=== PATIENT | female | born 1950 | race Caucasian/White ===

== ENCOUNTER → 2023-09-19 12:00 | Outpatient (REF) | payer OTHER, SELFPAY ==
--- NOTE | 2023-09-21 08:30 | PN.DIAED16 ---
This is to notify you that your patient with diabetes, ROSALINA SANCHEZ ( 1950), has attended the entire series of Diabetes Self-Management Education Classes.
Class 1 (120 minutes): Diabetes Overview - monitoring, stress/psychosocial adjustment, support, goal setting
Class 2 (120 minutes): Meal Planning - serving sizes, menu plans
Class 3 (120 minutes): Introduction to Carbohydrate Counting, Analyzing Food Labels
Class 4 (120 minutes): Medication, Exercise and Activity
Class 5 (120 minutes): Sick Day Management, Strategies to Reduce Complications, Problem Solving, Resources
The following behavioral goals were identified:
Exercise 15 mins-3x/week
Make better food choices
Reduce portion sizes
Monitor more often
A follow-up call will be made within three to six months to evaluate attainment of these goals and to check post-program Hemoglobin A1c and overall progress. All class participants are encouraged to contact me if I can be any further assistance in
learning how to manage their diabetes.
Sincerely,
--- NOTE | 2023-09-27 08:53 | PN.DIAED04 ---
Education Record
- Education Record
Class Attended: Class 5
DSME Class Series Code: [id number]
Instructor: Registered Nurse (Manda Linton, RN, BSN, [facility] [place])
Class Curriculum:
Outpatient Diabetes Education Program:
Class 5 (120 minutes)
Prevent, detect, and treat acute complications
Prevent, detect, and treat chronic complications through risk reduction
Develop personal strategies to address psychosocial issues and concerns
Development of diabetes self-management support plan
Letter to physician with DSMS plan attached sent
Class Length (mins): 120
Post-Program Knowledge: Demonstrates competency
Post-Test Score (%): 83
Post-Program Assessment
- Post-Program Assessment
Actual Weight: 173 lb
Blood pressure: 140/71
Post-Program Depression Survey Score: 0
Reviewing Previous Goals?: Yes
Pre-Program Depression Survey Score: 5
- Goals 1 Evaluation
Goals To Be Evaluated: Exercise 15 mins-3x/week
- Goals 2 Evaluation
Goals To Be Evaluated: Make better food choices. Reduce portion sizes
- Goals 3 Evaluation
Goals To Be Evaluated: Monitor more often
== END ==
LOC: DES 12:00
PROVIDERS: ATTENDING PHYSICIAN Family Medicine
DX: E11.9 Type 2 diabetes mellitus without complications (principal)
CPT/HCPCS: 99078

== ENCOUNTER → 2024-06-12 10:52 | Outpatient (REF) | payer OTHER, SELFPAY | LOC: WDC 10:52 | PROVIDERS: ATTENDING PHYSICIAN Family Medicine | DX: Z12.31 Encounter for screening mammogram for malignant neoplasm of breast (principal) | CPT/HCPCS: 77063; 77067 ==

== ENCOUNTER → 2025-07-02 09:41 | Outpatient (REF) | payer OTHER, SELFPAY | LOC: RAD 09:41 | DX: M25.432 Effusion, left wrist (principal) | CPT/HCPCS: 73110 ==

== ENCOUNTER 2025-07-24 23:06 | Observation (INO) | payer OTHER, SELFPAY ==
[2025-07-24 15:25] VITALS: BP 128/86
[2025-07-24 15:52] LABS: Hematocrit 35.7 % (37.0-47.0); Hemoglobin 11.8 g/dL (12.0-16.0); Mean Corp Hgb Conc. 33.1 g/dL (33.0-37.0); Mean Corpuscular Volume 91.5 fL (81.0-99.0); Nucleated Red Blood Cells % 0 %; Platelet Count 221 10^3/uL (130-400); Red Cell Dist. Width 13.9 % (11.5-14.5)
[2025-07-24 16:04] LABS: ALT (SGPT) 17 U/L (0-35); AST (SGOT) 21 U/L (14-36); Albumin 4.6 g/dl (3.5-5.0); Alkaline Phosphatase 104 U/L (38-126); Blood Urea Nitrogen 27 mg/dl (7-17); Calcium 10.3 mg/dl (8.4-10.2); Carbon Dioxide 26 mmol/L (22-30); Chloride 102 mmol/L (98-107); Glucose 169 mg/dl (70-99); Potassium 4.3 mmol/L (3.5-5.1); Sodium 137 mmol/L (135-145); Total Protein 7.3 g/dl (6.3-8.2); eGFR > 60.00
[2025-07-24 16:10] LABS: Troponin I < 0.012 ng/ml
[2025-07-24 19:01] VITALS: BMI 33.5
[2025-07-24 19:04] VITALS: BP 180/68
--- NOTE | 2025-07-24 19:06 | ED.GENMED ---
History of Present Illness
<Rena Bates MD, Resident - Last Filed: 07/24/25 21:17>
General
Chief Complaint: Chest Pain
Source: patient
Exam Limitations: none
Time Seen by Provider: 07/24/25 19:02
Nursing documentation reviewed up to this point in time: agreed with
History of Present Illness
History of Present Illness:
75-year-old F with a history of CAD (status post cardiac stent in 2021), HTN, HLD, and DM who presents with chest tightness/discomfort radiating to left arm.
Patient states that she was walking her dog this afternoon when she felt uncomfortable tight feeling in her chest that radiated to her left arm. Denies any feelings of palpitations or racing heart at this time. Patient states that this chest
tightness has fluctuated since this afternoon till now, getting better and then getting a bit worse. Endorses some nausea and increased burping the last few hours. No episodes of emesis. She did take 4 X81 mg aspirin in the ambulance on the way
here. Did not feel that this changed symptoms. States that chest discomfort was not associated with movement, it was actually worse while she was sitting down. Denies any history of asthma, no recent colds or cough, no constipation, no blurry
vision, no loss of consciousness, no leg swelling. Denies having been in a stressful situation or thinking about anything upsetting when the chest tightness first occurred when walking. Patient does state that while she was sitting in the ED
waiting room she felt like she saw little specks in her vision; denies any areas of loss of vision at this point in time. Patient has no history of GERD, takes no PPIs. Patient is endorsing a headache at this point in time.
Patient did have a fall at home yesterday after she tripped. Landed face first although blocked her fall with limbs. Endorses pain in right posterior knee, pain with knee flexion.
She does not measure her blood pressure at home but on Tuesday at her PCP it was 120/80, and earlier that day it had been measured at 160/70. That Tuesday she had an episode that was ultimately attributed to orthostatic syncope in which she stood
up too quickly from bed and fell back onto the bed. She called EMS and then went to her PCP; workup was unremarkable at that point in time. However, this made the patient concerned and made her more aware of today's episode and wanted to come in.
Patient takes 3 medications for hypertension�amlodipine, metoprolol, losartan. Denies any missed doses.
Past History
<Rena Bates MD, Resident - Last Filed: 07/24/25 21:17>
Past History
ED Past Medical History: HTN and Hypercholesterolemia
Social History
Tobacco: Non-smoker
Employment: Employed
Review of Systems
<Rena Bates MD, Resident - Last Filed: 07/24/25 21:17>
Review of Systems
All Other Systems: ROS reviewed and negative except as documented in HPI and ROS
Constitutional: Reports no symptoms
EENT: Reports no symptoms
Respiratory: Reports no symptoms
Cardiac: Reports chest pain
ABD/GI: Reports nausea and other (Burping)
: Reports no symptoms
Musculoskeletal: Reports no symptoms
Skin: Reports no symptoms
Neurological: Reports headache
Psychiatric: Reports no symptoms
Phy Exam
<Rena Bates MD, Resident - Last Filed: 07/24/25 21:17>
General Physical Exam
General Presentation: well appearing and no apparent distress
General age: appears stated age
General Skin: warm and dry
General Habitus: normal
General Mental: alert and other (Stating that she feels a little bit loopy/off; some mild forgetfulness in answers but able to converse appropriately and answer questions)
General Hydration: appears well hydrated
Eye Exam
Eye Exam: PERRL, EOMI and conjunctiva normal
Cardiovascular Exam
Cardiovascular Exam: regular rate/rhythm and no edema
Heart Sounds: normal
Pulmonary Exam
Pulmonary Exam: lungs clear and no respiratory distress
Gastrointestinal Exam
Gastrointestinal Exam: non tender, soft and non distended
Neurological Exam
Neurological Exam: alert
Musculoskeletal Exam
Musculoskeletal Exam: no edema and other (Tenderness to palpation posterior right knee; no tenderness to palpation over joint, no swelling of knee, no erythema)
Skin Exam
Skin Exam: normal color
Psychiatric Exam
Psychiatric Exam: normal mood/affect
Scores
<Rena Bates MD, Resident - Last Filed: 07/24/25 21:17>
Heart Score for Chest Pain Patients
STEMI patient?: No
History: Moderately Suspicious
ECG: Normal
Age: >/= 65 years
Risk Factors: >/= 3 Risk Factors or History of CAD
Troponin: >1 - <3 x Normal Limit
Heart Score for Chest Pain Patients: 6
Heart Score Risk: 20.3% MACE over next 6 weeks
Course
<Rena Bates MD, Resident - Last Filed: 07/24/25 21:17>
Orders/Labs/Results
Orders:
Orders
07/24/25 15:28
Electrocardiogram (*1) Urgent
Reason for Study: Chest Pain
EKG- Treatment ONCE
07/24/25 15:40
Complete Blood Count/With Diff Urgent
Comprehensive Metabolic Panel Urgent
Troponin I Urgent
07/24/25 19:40
Ondansetron Orally Disint [Zofran Odt (Orally Disintegrating)] 4 mg PO NOW STA
Pantoprazole [Protonix] 20 mg PO NOW STA
07/24/25 19:46
Mag Hydrox/Al Hydrox/Simeth [Maalox] 30 ml Phenobarb/Hyoscy/Atropine/Scop [] 10 ml Viscous Lidocaine 2% [Xylocaine Viscous Cup] 10 ml PO NOW
07/24/25 19:50
Mag Hydrox/Al Hydrox/Simeth [Maalox] 30 ml .ROUTE .STK-MED ONE
Phenobarb/Hyoscy/Atropine/Scop [] 10 ml .ROUTE .STK-MED ONE
07/24/25 19:51
Viscous Lidocaine 2% [Xylocaine Viscous Cup] 15 ml .ROUTE .STK-MED ONE
07/24/25 19:56
Troponin I Urgent
07/24/25 21:12
Nitroglycerin Sublingual [Nitrostat (Sublingual)] 0.4 mg SL NOW STA
Abnormal Lab Results
07/24/25 07/24/25
15:40 19:56
RBC 3.90 L 10^6/uL
(4.20-5.40)
Hgb 11.8 L g/dL
(12.0-16.0)
Hct 35.7 L %
(37.0-47.0)
MPV 11.6 H fL
(7.4-10.4)
Absolute Lymphs (auto) 0.8 L 10^3/uL
(1.2-3.4)
Lymphocytes % 14.8 L %
(20.5-51.1)
BUN 27 H mg/dl
(7-17)
Glucose 169 H mg/dl
(70-99)
Calcium 10.3 H mg/dl
(8.4-10.2)
Troponin I 0.042 H* D ng/ml
07/24/25 15:40
07/24/25 15:40
Vital Signs
Initial and Last Documented VS:
Initial Vital Signs
Temp Pulse Resp BP Pulse Ox
98 F 63 16 128/86 98
07/24/25 15:25 07/24/25 15:25 07/24/25 15:25 07/24/25 15:25 07/24/25 15:25
Last Documented Vital Signs
Temp Pulse Resp BP Pulse Ox
98 F 60 18 181/91 98
07/24/25 15:25 07/24/25 20:04 07/24/25 20:04 07/24/25 20:04 07/24/25 19:08
<Alejandro Hensley, DO - Last Filed: 07/24/25 21:12>
Orders/Labs/Results
Orders:
Orders
07/24/25 15:28
Electrocardiogram (*1) Urgent
Reason for Study: Chest Pain
EKG- Treatment ONCE
07/24/25 15:40
Complete Blood Count/With Diff Urgent
Comprehensive Metabolic Panel Urgent
Troponin I Urgent
07/24/25 19:40
Ondansetron Orally Disint [Zofran Odt (Orally Disintegrating)] 4 mg PO NOW STA
Pantoprazole [Protonix] 20 mg PO NOW STA
07/24/25 19:46
Mag Hydrox/Al Hydrox/Simeth [Maalox] 30 ml Phenobarb/Hyoscy/Atropine/Scop [] 10 ml Viscous Lidocaine 2% [Xylocaine Viscous Cup] 10 ml PO NOW
07/24/25 19:50
Mag Hydrox/Al Hydrox/Simeth [Maalox] 30 ml .ROUTE .STK-MED ONE
Phenobarb/Hyoscy/Atropine/Scop [] 10 ml .ROUTE .STK-MED ONE
07/24/25 19:51
Viscous Lidocaine 2% [Xylocaine Viscous Cup] 15 ml .ROUTE .STK-MED ONE
07/24/25 19:56
Troponin I Urgent
07/24/25 21:12
Nitroglycerin Sublingual [Nitrostat (Sublingual)] 0.4 mg SL NOW STA
Abnormal Lab Results
07/24/25 07/24/25
15:40 19:56
RBC 3.90 L 10^6/uL
(4.20-5.40)
Hgb 11.8 L g/dL
(12.0-16.0)
Hct 35.7 L %
(37.0-47.0)
MPV 11.6 H fL
(7.4-10.4)
Absolute Lymphs (auto) 0.8 L 10^3/uL
(1.2-3.4)
Lymphocytes % 14.8 L %
(20.5-51.1)
BUN 27 H mg/dl
(7-17)
Glucose 169 H mg/dl
(70-99)
Calcium 10.3 H mg/dl
(8.4-10.2)
Troponin I 0.042 H* D ng/ml
07/24/25 15:40
07/24/25 15:40
Vital Signs
Initial and Last Documented VS:
Initial Vital Signs
Temp Pulse Resp BP Pulse Ox
98 F 63 16 128/86 98
07/24/25 15:25 07/24/25 15:25 07/24/25 15:25 07/24/25 15:25 07/24/25 15:25
Last Documented Vital Signs
Temp Pulse Resp BP Pulse Ox
98 F 60 18 181/91 98
07/24/25 15:25 07/24/25 20:04 07/24/25 20:04 07/24/25 20:04 07/24/25 19:08
<Rena Bates MD, Resident - Last Filed: 07/24/25 21:17>
MDM/Problems Addressed
Differential Diagnosis Includes:
ACS
Stable angina
Anxiety/panic attack
MSK spasm/cramping in the setting of recent fall
GERD
MDM/Problems Addressed:
- CBC, CMP
- EKG, troponins
- GI cocktail
<Rena Bates MD, Resident - Last Filed: 07/24/25 21:17>
*Pulse Oximetry
SaO2: 98
Oxygen Mode of Delivery: Room air
Patient hypoxic: no
*Critical Care Note
Total Time (30-74mins, 75-104mins- exclusive of procedures): Not Applicable
<Rena Bates MD, Resident - Last Filed: 07/24/25 21:17>
Update Note
Update Note:
EKG unremarkable, CBC/CMP unremarkable, trop not elevated
Will repeat trop & give GI cocktail for sx relief
8:45pm
repeat troponin now elevated 0.042
will give nitro & plan to admit to trend troponin
ED Attending Note
<Rena Bates MD, Resident - Last Filed: 07/24/25 21:17>
-
Portions of this chart may have been created with voice recognition software.� Occasional wrong word or��sound alike� substitutions may have occurred due to the inherent limitations of voice recognition software.
<Alejandro Hensley, DO - Last Filed: 07/24/25 21:12>
ED Attending Note
Patient seen and examined by attending physician: Yes
I performed a history and physical exam of patient and discussed management with resident, I reviewed resident's note and agree with documented findings and plan of care.: Yes
ED Attending Note:
I have seen and evaluated the patient with a [id number] encounter. I have spoken to the resident and involved in the medical history, the physical exam, medical decision making.
Evaluation and management service: agree unless noted differently below.
Results interpretation: agree unless noted differently below.
Focused HPI: 75-year-old female presenting for evaluation of chest heaviness. Symptoms are not worse with exertion. Of note, patient had a fall yesterday and states she landed on her chest but states it is not painful to palpation
Physical exam: sitting in bed comfortably. Heart regular rate and rhythm. Lungs clear. No rib tenderness. No chest bruising noted
Medical Decision Making: Will obtain 2 troponin rule out given her history of coronary artery disease. Will give GI cocktail given the history of increased belching. We discussed that her symptoms are likely MSK but x-ray not indicated given no
tenderness to palpation of the ribs
Update 9:10 PM second troponin found to be elevated. Given her history of coronary artery disease, will give aspirin and nitro and admit for troponin trending
Discharge Plan
Departure
Patient Disposition: Admit
Date of Disposition: 07/24/25
Time of Disposition: 21:13
Admit to: Med/Surg
Admit to doctor: Freddy
Presentation/result/management discussed w/ accepting MD/DO: Hospitalist
Patient with high blood pressure during this ER visit?: Yes
Condition: Fair
Covid-19: Not Applicable
Discharge Problem:
Chest pain
Prescriptions:
No Action
aspirin 81 MG tablet,chewable
81 mg PO DAILY
clopidogrel 75 MG tablet
75 mg PO DAILY Qty: 90 10RF
metoprolol succinate 25 MG tablet extended release 24 hr
25 mg PO DAILY Qty: 90 10RF
losartan 50 MG tablet
50 mg PO DAILY Qty: 90 5RF
metformin 500 MG tablet
500 mg PO DAILY Qty: 0 0RF
Rx Instructions:
Resume on Tuesday am
metformin 1,000 MG tablet
1,000 mg PO HS Qty: 0 0RF
Rx Instructions:
Resume on Wednesday 12/20
rosuvastatin [Crestor] 40 MG tablet
40 mg PO QPM Qty: 90 5RF
Referrals:
NONE,* [Family Provider, Internal Medicine]
Interventions
Interventions:
*Risk Screen - Suicide Last Done: 07/24/25 15:27
*General Assessment Last Done: 07/24/25 19:00
*Neglect/Abuse Screening Last Done: 07/24/25 15:27
*ED COVID-19 Vaccine History Last Done: 07/24/25 19:00
*ED Influenza Vaccine History Last Done: 07/24/25 19:[address]
[facility] Fall Risk Assessment Tool Last Done: 07/24/25 19:00
ED- Cardiac Assessment Last Done: 07/24/25 19:00
Discharge Date and Time
Print Language: ITALIAN
[2025-07-24] MEDS: MAALOX 50 PO (19:52)
[2025-07-24 20:04] VITALS: BP 181/91
[2025-07-24 20:38] LABS: Troponin I 0.042 ng/ml
[2025-07-24 21:46] VITALS: BP 151/78
--- NOTE | 2025-07-24 21:59 | HPS.HSE ---
Family Physician
-
Family Physician: * NONE
Chief Complaint
-
Chest pain
History of Present Illness
This is a 77-year-old female with past medical history significant for qvg-tejaoqf-gclmcxive diabetes, CAD status post stenting 2 years ago, hyperlipidemia who presents to the emergency department with episode of chest discomfort.
Patient reported that it occurred around 1 PM. She just woke up about a 10 to from a in the cold when she got back she felt some chest tightness. She denies feeling short of breath. She denies any cough fevers or chills. She said the chest
tightness was located to her substernal region but also she felt tightness in her bilateral upper extremities as well as her head. She denied any palpitations. She denied feeling dizzy or lightheaded. She denies any nausea or vomiting or
diaphoresis. The symptoms persisted until EMS arrived. She was given 324 mg of aspirin. Was brought to the emergency department. Patient reported that while she was in the waiting room she still felt tightness but currently she has no more
tightness. She received a GI cocktail and said that seemed to improve the symptoms. She denies recent exertional dyspnea, orthopnea PND or lower extremity swelling. Her blood pressures have been well-controlled and she states she had a recent
visit to a physician within normal vital signs.
In the emergency department patient was febrile, blood pressure was 180/90, pulse 60, respirate rate 18, oxygen saturation 98%. ECG shows a sinus bradycardia rate of [address] or T wave changes. Initial troponin was 0.012, repeat troponin
jumped to 0.046. CBC was unremarkable. Electrolytes BUN/creatinine were all within the normal range.
Medical History
Past Medical History
Past Medical History: Reports CAD (CAD status post stenting in 2021), HTN, Hypercholesterolemia, NIDDM and Other (Is what it hypercalcemia)
Past Surgical History: Reports None
Social History
Tobacco: Non-smoker
Alcohol: None
Drug: None
Personal:
Living: With Family
Family History
Family History: Not pertinent
Allergies / Home Medications
Allergies reflects when Allergies were last updated in [employer].
Home Medications with original date entered in [employer]
Allergy/Medication List:
Allergies
Allergy/AdvReac Type Severity Reaction Status Date / Time
erythromycin base Allergy GI symptoms Verified 01/16/19 21:46
(Erythromycin Base)
ethyl alcohol Allergy GI problems Verified 12/18/21 08:32
lisinopril Allergy cough Verified 12/18/21 08:32
Penicillins Allergy yeast Verified 12/18/21 08:32
infections
Home Medications
aspirin 81 mg chewable tablet 81 mg PO DAILY 12/18/21
metformin 1,000 mg tablet 1,000 mg PO HS ##0 12/18/21
metformin 500 mg tablet 500 mg PO DAILY ##0 12/18/21
metoprolol succinate 25 mg tablet,extended release 24 hr 25 mg PO DAILY #90 tabs 12/18/21
rosuvastatin 40 mg tablet (Crestor) 40 mg PO QPM #90 tabs 12/18/21
amlodipine 5 mg tablet 5 mg PO DAILY 07/24/25
ibuprofen 200 mg tablet 400 mg PO Q6H PRN mild pain 07/24/25
losartan 100 mg tablet 100 mg PO DAILY 07/24/25
magnesium oxide 400 mg PO DAILY 07/24/25
Review of Systems
-
Constitutional: Reports No Symptoms
EENT: Reports No Symptoms
Respiratory: Reports No Symptoms
Cardiac: Reports Chest Pain
Abdomen/GI: Reports No Symptoms
: Reports No Symptoms
Musculoskeletal: Reports No Symptoms
Skin: Reports No Symptoms
Neurological: Reports No Symptoms
Endocrine: Reports No Symptoms
Hematologic/Lymphatic: Reports No Symptoms
Psych: Reports No Symptoms
Physical Exam
Vital Signs
Vital Signs
Temp Pulse Resp BP Pulse Ox
98 F 60 18 181/91 98
07/24/25 15:25 07/24/25 20:04 07/24/25 20:04 07/24/25 20:04 07/24/25 19:08
Physical Exam
General: Well Developed, Well Nourished and No Apparent Distress
HEENT: NormoCephalic, Moist mucous membranes and Atraumatic
Respiratory: Clear
Cardiac: S1/S2, Regular Rhythm and Bradycardia; No Murmur or Rub
GI: Soft, Non Tender, Non Distended and Normal Bowel Sounds; No Organomegaly
Rectal: Deferred by Provider
Musculoskeletal: No Clubbing, No Cyanosis and No Edema
Skin: No Rash
Neuro: AO x 3 and Nonfocal/grossly intact
Psych: Calm
Laboratory Results
-
07/24/25 15:40
07/24/25 15:40
Laboratory Results
Total Bilirubin 0.6 mg/dl (0.2-1.3) 07/24/25 15:40
AST 21 U/L (14-36) 07/24/25 15:40
ALT 17 U/L (0-35) 07/24/25 15:40
Alkaline Phosphatase 104 U/L (38-126) 07/24/25 15:40
Troponin I 0.042 ng/ml H* D 07/24/25 19:56
Data Reviewed
-
Medical Tests (Nuc Med, Echo, EKG etc): Image Personally Visualized and interpreted
Lab Data: Labs Reviewed by me
Old Records: Reviewed
Impression/Plan
-
IMPRESSION:
This s a 75-year-old with a history of CAD status post stenting in 2021, ibq-mgaijxd-donlgjhic diabetes, hypertension and hyperlipidemia who presents to Emergency Department with chest tightness radiating to the bilateral arms and associated with
slight elevation in troponin. Initial troponin was 0.01 2 repeat was 0.04. She is currently chest pain-free.
PLAN:
Chest pain -suspect NSTEMI, currently chest pain-free, ECG is nonischemic. Intermittent bradycardia but currently in sinus rhythm with a bradycardia heart rate of 60s.
� Admit to telemetry observation
� Trend troponins every 3 hours
� Will start heparin if troponin rises on next repeat
� Status post aspirin 324, continue home dose 81 daily
� As needed nitroglycerin
� Echocardiogram in a.m.
� Continue rosuvastatin
� Will continue metoprolol with hold parameters
� Cardiology consultation
Diabetes
� Diabetic diet
� Hold metformin in case of procedure, sliding scale insulin
Hypertension
� Continue amlodipine, losartan
� Continue metoprolol with hold parameters
[2025-07-24] MEDS: NITRO-BID 0.5 INCH TOPICAL (23:27)
[2025-07-24 23:30] VITALS: BP 139/103
[2025-07-25] VITALS (14 sets, daily range): BP systolic 118–153; BP diastolic 51–125; BMI 31.9
[2025-07-25 00:15] LABS: INR 1.17; PT 14.7 Sec (11.4-14.6)
[2025-07-25 00:16] LABS: APTT 30.6 Sec (23.4-35.0)
[2025-07-25 00:48] LABS: Troponin I 0.150 ng/ml
[2025-07-25] MEDS: HEPARIN 4000 UNITS IV (02:19)
[2025-07-25] MEDS: HEPARIN 25000 UNITS/250 ML IV (02:22)
[2025-07-25 02:27] LABS: Hematocrit 33.9 % (37.0-47.0); Hemoglobin 11.4 g/dL (12.0-16.0); Mean Corp Hgb Conc. 33.6 g/dL (33.0-37.0); Mean Corpuscular Volume 87.8 fL (81.0-99.0); Platelet Count 233 10^3/uL (130-400); Red Cell Dist. Width 14.0 % (11.5-14.5)
--- NOTE | 2025-07-25 02:32 | PTCARENOTE ---
Received pt into room 2253 from ED RN via stretcher @ approx 0015. Assessment and admission completed as documented--see worklist. High fall risk precautions maintained d/t recent hx of fall. pt AAOx3, encouraged pt to call RN for assistance
ambulating, calls appropriately. Trop and EKG obtained. Heparin gtt initiated per order--see OCT. Call elliott within reach.
[2025-07-25 02:48] LABS: Blood Urea Nitrogen 20 mg/dl (7-17); Calcium 10.8 mg/dl (8.4-10.2); Carbon Dioxide 25 mmol/L (22-30); Chloride 106 mmol/L (98-107); Estimated Creatinine Clearance 61 ml/min; Glucose 119 mg/dl (70-99); HDL Cholesterol 57 mg/dl; LDL Cholesterol, Calculated 49 mg/dl; Potassium 4.3 mmol/L (3.5-5.1); Sodium 137 mmol/L (135-145); Very Low Density Lipoprotein 17 mg/dl (0-30); eGFR > 60.00
[2025-07-25 03:07] LABS: Troponin I 0.333 ng/ml
[2025-07-25 06:25] LABS: Troponin I 0.554 ng/ml
--- NOTE | 2025-07-25 07:47 | CON.CAR ---
Addendum entered and electronically signed by Marzena Noel MD 07/25/25 23:09:
I saw and examined the patient.
The Software Packaging Engineer's note was reviewed and I agree with the note.
Comment: Carole is 75yo with HTN, HLD, DM2, CAD s/p Prior Diag PCI in 2021, former smoker who presents with sudden onset chest tightness after walking to her home from her brother's associated with SOB, similar to prior episode when she needed
stent in 2021. Mild troponin elelvation. ECG with no obvious ischemic changes.
.
VSS other than HTN. Labs reviewed. On exam, pt is well appearing, NAD, A+O x 3, RR, Nl S1 and S2. No m/r/g, No JVD, CTAB, Abd soft, NT, ND +BS warm ext.
Plan:
1. Given concern for NSTEMI, no role for Stress test. Discussed heart cath including risk and benefits and pt agreeable to proceeding after informed consent.
2. In the meantime, cont with ACS treatment with ASA, statin, BB.
3. Echo to assess LV fxn and WMA, valve disease.
4. Trend trops, ECGs, Tele
5. Further reccs based on heart cath.
Marzena Noel MD, [facility], [facility]
[id number], [phone]
Original Note:
Consultation
Consultation Request
Date/Time Consultation Performed: 07/25/25
Requesting Provider: Dr. Franco
Performing Provider: Annetta Youssef PA-C for Dr. Noel
Reason for Consultation: CP
Medical History
-
Chief Complaint: CP
History of Present Illness:
Patient is a 75-year-old female with past medical history of CAD with prior first diagonal stent 2021, hypertension, diabetes, dyslipidemia, diastolic dysfunction who presents to [facility] ER with complaints of chest discomfort. She states she was
walking home from her brother's house who lives next-door and developed central chest tightness/pressure with pain into both arms as well as headache. She called 911 who brought her in. She states symptoms had started to improve while sitting in
waiting room, however then once back in room was given nitro which she reports did help her symptoms. Troponin uptrending, most recent 0.5. She is presently on IV heparin and chest pain-free. She has been compliant with outpatient aspirin. She
does also report an episode on Tuesday morning where she woke up and stood up to get a glass of water from her bedside table and 'fell back on her bed'. She states she does not feel as though this was a fainting episode and does not think she lost
consciousness as she recalls everything. She called EMS however as she was afraid as this had never happened to her before, and was felt to be okay, likely related to orthostasis. She has not had episodes before or since.
PMH:
CAD status post first diagonal stent 12/2021
Hypertension
Dyslipidemia
Diabetes
Diastolic dysfunction
Former smoker
Past Medical History
Past Medical History: Other (in HPI)
Social History
Tobacco: Former Smoker
Alcohol: Occasional
Living: Alone
Family History
Family History: CAD and Hypertension
Allergies / Home Medications
Allergy/AdvReac Type Severity Reaction Status Date / Time
erythromycin base Allergy GI symptoms Verified 01/16/19 21:46
(Erythromycin Base)
ethyl alcohol Allergy GI problems Verified 12/18/21 08:32
lisinopril Allergy cough Verified 12/18/21 08:32
Penicillins Allergy yeast Verified 12/18/21 08:32
infections
�Medication �Instructions �Recorded �Confirmed �Type
aspirin 81 mg chewable tablet 81 mg PO DAILY 12/18/21 07/24/25 History
metformin 1,000 mg tablet 1,000 mg PO HS ##0 12/18/21 07/24/25 Rx
metformin 500 mg tablet 500 mg PO DAILY ##0 12/18/21 07/24/25 Rx
metoprolol succinate 25 mg 25 mg PO DAILY #90 tabs 12/18/21 07/24/25 Rx
tablet,extended release 24 hr
rosuvastatin 40 mg tablet (Crestor) 40 mg PO QPM #90 tabs 12/18/21 07/24/25 Rx
amlodipine 5 mg tablet 5 mg PO DAILY 07/24/25 07/24/25 History
ibuprofen 200 mg tablet 400 mg PO Q6H PRN mild pain 07/24/25 07/24/25 History
losartan 100 mg tablet 100 mg PO DAILY 07/24/25 07/24/25 History
magnesium oxide 400 mg PO DAILY 07/24/25 07/24/25 History
Review of Systems
-
History Source: Patient
All other systems: Negative unless noted
Physical Exam
Vital Signs
Temp Pulse Resp BP Pulse Ox
98.9 F 57 20 146/82 96
07/25/25 07:02 07/25/25 06:00 07/25/25 07:02 07/25/25 04:19 07/25/25 07:02
Lab Results
07/25/25 02:14
07/25/25 02:14
Troponin I 0.554 ng/ml H* D 07/25/25 05:15
Physical Exam
General: No Apparent Distress and Comfortable
HEENT: Normocephalic, Anicteric and Moist Mucous Membranes
Respiratory: Clear and Non Labored Respirations
Cardiac: S1/S2 and Regular Rhythm
GI: Soft, Non Tender and Non Distended
Musculoskeletal: No Clubbing, No Cyanosis and No Edema
Skin: Warm and Dry
Neuro: AO x 3
Impression / Plan
-
Primary Band Leader: Dr. Spivey
Assessment:
Presentation with CP
NSTEMI
CAD status post first diagonal stent 12/2021
Hypertension
Dyslipidemia
Diabetes
Diastolic dysfunction
Former smoker
ECHO 2022: EF 60%, mild MS with peak/mean gradients 10/3 mmHg, trace MR
ECHO 07/25/25: pending
Plan:
- Patient presents with episode of chest pain yesterday with exertion.
- She has ruled in for NSTEMI with troponin of 0.5, trend to peak. She has history of first diagonal stent in 2021
- She is presently chest pain-free on nitro patch and IV heparin, continue
- EKG sinus rhythm. Remains in sinus rhythm/sinus bradycardia on review of telemetry overnight
- Continue outpatient aspirin. Hemoglobin 11.4
- Check CVE. Continue outpatient statin
- Continue Norvasc, Toprol, Cozaar
- Check echo
- N.p.o. for cardiac catheterization today
- Further recommendations based on results of cardiac catheterization
- Discussed with nursing
Data Reviewed
-
EKG: Tracing Personally Visualized and interpreted
Radiology: Report Reviewed by me
Medical Tests (Nuc Med, Echo etc): Report Reviewed by me
Labs: Labs Reviewed by me
Old Records: Reviewed
[2025-07-25] MEDS: NORVASC 5 MG PO (07:51)
[2025-07-25] MEDS: COZAAR 100 MG PO (07:51)
[2025-07-25] MEDS: LOW STRENGTH ASPIRIN 81 MG PO (07:51)
[2025-07-25] MEDS: MAGNESIUM OXIDE 400 MG PO (07:51)
[2025-07-25] MEDS: TOPROL XL 25 MG PO (07:52)
[2025-07-25 09:24] LABS: APTT 89.8 Sec (23.4-35.0)
--- NOTE | 2025-07-25 09:35 | CM ---
Reviewed chart. Met with Miss Barlow to review discharge plans. She states prior to admission she resides alone in a three story [place] with five steps to enter. She states she has a first floor set-up. She states prior to admission she was
independent with ambulation and adls. She states she does not have any DME in the home. She states she has a prescription plan and uses [facility]. The discharge plan is to return home when medically stable.
[2025-07-25 09:44] LABS: Glycohemoglobin (HgbA1c) 6.0 % (4.0-5.9)
[2025-07-25 09:57] LABS: Troponin I 0.691 ng/ml
--- NOTE | 2025-07-25 11:04 | W.PN.HOSP.TC ---
Today's Communication/Plan
-
see a/p
Assessment / Plan
Assessment / Plan
Physical Exam
General: no acute distress, appears comfortable
HEENT: NormoCephalic, Moist mucous membranes and Atraumatic
Respiratory: Clear
Cardiac: S1/S2, Regular Rhythm and Bradycardia; No Murmur or Rub
GI: Soft, Non Tender, Non Distended and Normal Bowel Sounds; No Organomegaly
Musculoskeletal: No Clubbing, No Cyanosis and No Edema
Skin: No Rash
Neuro: AO x 3 conversant coherent
Psych: Calm
IMPRESSION:
This s a 75-year-old with a history of CAD status post stenting in 2021, [id number] diabetes, hypertension and hyperlipidemia who presents to Emergency Department with chest tightness radiating to the bilateral arms and associated with
slight elevation in troponin. Initial troponin was 0.01 2 repeat was 0.04. She is currently chest pain-free.
PLAN:
Chest pain -suspect NSTEMI, currently chest pain-free, ECG is nonischemic. Intermittent bradycardia but currently in sinus rhythm with a bradycardia heart rate of 60s.
� Tele
� troponin trended to peak 0.691
� hep gtt
� Status post aspirin 324, continue home dose 81 daily
� As needed nitroglycerin
� ECHO appreciated EF 65% no acute change from prior ECHO 12/2022
� Continue statin
� BB
� Cardiology consultation appreciated npo for cath today
Diabetes
� Diabetic diet
� Hold metformin
- sliding scale insulin
Hypertension
� Continue amlodipine, losartan
� Continue metoprolol with hold parameters
dvt ppx hep gtt
Full Code
I spent a total of 40 minutes with the patient or on the floor. More than 50% of this time involved counseling and coordination of care.
Anticipated Discharge: 24 - 48 hours
Subjective/Interval History
-
Date of Service: July 25, 2025
no acute distress, sitting up comfortably in chair. Chest pain free. Overall reports feeling well. Symptoms significantly improved/resolved from prior.
Objective Data
-
Labs:
Laboratory Results
07/25/25 07/25/25 07/25/25
00:00 02:14 09:05
WBC 7.0
Hgb 11.4 L
Hct 33.9 L
Plt Count 233
PT 14.7 H
INR 1.17
APTT 30.6 89.8 H
Sodium 137
Potassium 4.3
Chloride 106
Carbon Dioxide 25
BUN 20 H
Creatinine 0.7
Glucose 119 H
Calcium 10.8 H
07/25/25
16:00
WBC
Hgb
Hct
Plt Count
PT
INR
APTT Pending
Sodium
Potassium
Chloride
Carbon Dioxide
BUN
Creatinine
Glucose
Calcium
Vital Signs:
Vital Signs
Temp Pulse Resp BP Pulse Ox
98.9 F 57 20 134/62 96
07/25/25 07:02 07/25/25 07:52 07/25/25 07:02 07/25/25 07:51 07/25/25 07:02
I&O
07/24/25 07/25/25 07/26/25
06:59 06:59 06:59
Intake Total 45 / 45
Balance 45 / 45
[2025-07-25 12:39] LABS: Glucose - Point of Care 114 mg/dl (70-99)
[2025-07-25 13:53] LABS: Troponin I 0.650 ng/ml
[2025-07-25 15:48] LABS: Glucose - Point of Care 98 mg/dl (70-99)
[2025-07-25] MEDS: CRESTOR 40 MG PO (17:47)
--- NOTE | 2025-07-25 18:48 | ITS.CL.CATH ---
Vocational Services Specialist - Catheterization
Cardiac Catheterization
Procedure Report:
LEFT HEART CATHETERIZATION
Date of Procedure: July 25, 2025
Referring: Marzena Noel MD, [facility], [facility]
PROCEDURES:
1. Left heart catheterization, coronary angiogram.
2. Moderate sedation.
INDICATION: Concern for NSTEMI
ACCESS: Right radial artery, 6Fr. sheath, under US guidance.
HEMODYNAMICS : (mmHg)
AO (s/d) : 138/59
LVEDP : 18
No significant gradient across the aortic valve to suggest aortic stenosis.
CORONARY FINDINGS
Dominance: Right
Left Main Trunk (LMT): Large caliber vessel that gives rise to the LAD and LCx branches and is free of angiographic disease.
Left Anterior Descending Artery (LAD): Large caliber vessel that gives off * major diagonal branches as it courses along the anterior inter-ventricular groove before wrapping around the cardiac apex. The LAD and its branches are free of
angiographic disease.
Left Circumflex Artery (LCx): Large caliber vessel that gives off * major obtuse marginal (OM) branches as it courses along the atrio-ventricular (AV) groove. The LCx and its branches are free of angiographic disease.
Right Coronary Artery (RCA): Large caliber dominant vessel that gives rise to the posterior descending artery (RPDA) and postero-lateral ventricular (RPLV) branches distally. The RCA and its branches are free of angiographic disease.
SEDATION: 27 minutes of procedural sedation was utilized. IV Midazolam and IV Fentanyl were administered. An independent medical aide was present to assist with and help manage the patient's level of consciousness and physiologic status.
RADIATION SUMMARY: Fluoro Time (min): 3.2, Dose (mGy): 291.67, DAP (Gy.cm2) : 23.1
Closure Device: There were no immediate intra-procedural complications. The sheath was pulled in the paving and surfacing labourer and a vascular-band applied to the right wrist for radial artery hemostasis using the patent hemostasis technique.
CONCLUSIONS
1. Mild to moderate coronary artery disease with no obstructive coronary occlusions.
2. Previously placed diagonal stent is widely patent.
3. LVEDP of 18 mmHg.
RECOMMENDATIONS
1. Wean radial band per protocol. Monitor right hand perfusion and for bleeding from the radial site following removal of the vascular-band following trans-radial access.
2. Continue aggressive medical therapy and risk factor modification for secondary CAD prevention.
3. Hydrate with normal saline to mitigate the risk of contrast-induced acute kidney injury.
4. Follow-up with Dr. Spivey
Marzena Noel MD, [facility], [facility]
Copy to: Velma Mcnulty.
--- NOTE | 2025-07-25 18:53 | PTCARENOTE ---
~4261-1453: Handoff report received from nightsernestina RN. Pt AOx4, SB/NSR 50s-60s on tele, SBP 130s, RA satting 96%. Pt denies pain/ CP at this time. Heparin gtt infusing at this time. Pt NPO for CCL later today. +2 pulses, no edema noted. Standby
assist to bathroom. Patient transported to [facility] via stretcher in stable condition. Pt OOB in chair after. All needs met at this time, call elliott within reach.
~3244-2112: Bloodwork obtained and sent to lab. PTT resulted therapeutic at this time, new PTT ordered per protocol. Troponin resulted and continue to trend up, new troponin ordered. All needs met at this time, call elliott within reach.
~2155-2859: Troponin drawn and sent to lab. Troponin peaked at 0.691. Pt remains NPO at this time. Around 1330 report given to CCL and patient taken in bed by clinical lab technologist team in stable condition.
~8579-8202: Patient back form CCL. R radial TR band in place, site CDI. +1 pulse on R side. VSS. Patient educated on RUE restrictions. Around 1600, air started to be removed from band per order, no oozing or hematoma noted at this time. All needs
met at this time, call elliott within reach.
~1548-8485: Patient resting in bed. Ax1 to bathroom. TR band removed @ 1820, site CDI and soft, dressing applied. All needs met at this time, call elliott within reach. Handoff report given to balta RN.
[2025-07-25 21:49] LABS: Glucose - Point of Care 103 mg/dl (70-99)
--- NOTE | 2025-07-25 22:33 | PTCARENOTE ---
Addendum entered by Carmen Knapp RN 07/25/25 23:02:
Saved VS from hi, 1530 on.
Original Note:
Received pt at change of shift resting in bed. SB-SR on tele, HR 40's-60's. pt denies any CP or SOB at this time. R radial site C/D/I, no bleeding or hematoma noted at this time. Educated pt on activity restrictions of right wrist, pt verbalizes
understanding. Encouraged pt to call RN for assistance ambulating and/or with any questions/concerns. Call elliott within reach.
[2025-07-26 03:03] VITALS: BP 129/48
[2025-07-26 03:35] LABS: Hematocrit 33.5 % (37.0-47.0); Hemoglobin 10.6 g/dL (12.0-16.0); Mean Corp Hgb Conc. 31.6 g/dL (33.0-37.0); Mean Corpuscular Volume 90.3 fL (81.0-99.0); Platelet Count 206 10^3/uL (130-400); Red Cell Dist. Width 13.8 % (11.5-14.5)
[2025-07-26 04:01] LABS: Blood Urea Nitrogen 15 mg/dl (7-17); Calcium 10.1 mg/dl (8.4-10.2); Carbon Dioxide 25 mmol/L (22-30); Chloride 105 mmol/L (98-107); Estimated Creatinine Clearance 61 ml/min; Glucose 109 mg/dl (70-99); Magnesium 2.0 mg/dl (1.6-2.3); Potassium 4.3 mmol/L (3.5-5.1); Sodium 135 mmol/L (135-145); eGFR > 60.00
[2025-07-26 07:06] VITALS: BP 142/66
--- NOTE | 2025-07-26 07:28 | W.PN.HOSP.TC ---
Addendum entered and electronically signed by Colin Franco MD 07/26/25 14:16:
metoprolol reduced to 12.5 mg daily from 25 mg d/t bradycardia HR 40s asymptomatic.
Original Note:
Today's Communication/Plan
-
discharge
Assessment / Plan
Assessment / Plan
Physical Exam
General: no acute distress, appears comfortable
HEENT: NormoCephalic, Moist mucous membranes and Atraumatic
Respiratory: Clear
Cardiac: S1/S2, Regular Rhythm and Bradycardia; No Murmur or Rub
GI: Soft, Non Tender, Non Distended and Normal Bowel Sounds; No Organomegaly
Musculoskeletal: No Clubbing, No Cyanosis and No Edema
Skin: No Rash
Neuro: AO x 3 conversant coherent
Psych: Calm
IMPRESSION:
This s a 75-year-old with a history of CAD status post stenting in 2021, [id number] diabetes, hypertension and hyperlipidemia who presents to Emergency Department with chest tightness radiating to the bilateral arms and associated with
slight elevation in troponin. Initial troponin was 0.01 2 repeat was 0.04. She is currently chest pain-free.
PLAN:
Chest pain, troponin elevation, suspected Type II SC 2/2/ HTN
� Tele
� troponin trended to peak 0.691
� hep gtt completed
� Status post aspirin 324, continue home dose 81 daily
� As needed nitroglycerin
� ECHO appreciated EF 65% no acute change from prior ECHO 12/2022
� Continue statin
� BB
� Cardiology consultation appreciated Cath noted mild to mod CAD w patent diagonal stent, medically stable for discharge home with outpatient follow up recommendations
reported hx Diabetes
� A1c 6.0 (prediabetic level)
- ok to dc routine FS
Hypertension
� Continue amlodipine, losartan
� Continue metoprolol with hold parameters
Full Code
Total Time Preparing Discharge __40 minutes including examination of the patient, summary of the hospital stay, instructions for continuing care to all relevant caregivers; and preparation of discharge records, prescriptions, and referral
forms if necessary.
Anticipated Discharge: Today
Subjective/Interval History
-
Date of Service: July 26, 2025
no acute distress, sitting up comfortably in bed. Overall reports feeling well. Denies new acute issues. Eager to go home.
Objective Data
-
Labs:
Laboratory Results
07/26/25
03:08
WBC 5.5
Hgb 10.6 L
Hct 33.5 L
Plt Count 206
Sodium 135
Potassium 4.3
Chloride 105
Carbon Dioxide 25
BUN 15
Creatinine 0.7
Glucose 109 H
Calcium 10.1
Vital Signs:
Vital Signs
Temp Pulse Resp BP Pulse Ox
97.6 F 71 16 129/48 94
07/26/25 03:02 07/26/25 05:30 07/26/25 03:02 07/26/25 03:03 07/26/25 03:03
I&O
07/25/25 07/26/25 07/27/25
06:59 06:59 06:59
Intake Total 45 / 45 720 / 720
Balance 45 / 45 720 / 720
--- NOTE | 2025-07-26 07:57 | W.PN.CARDCBS ---
Addendum entered and electronically signed by Marzena Noel MD 07/26/25 22:42:
I saw and examined the patient.
The Imaging Engineer's note was reviewed and I agree with the note.
Comment: No issues overnight. No further BP or SOB.
Vitals reviewed. NAD, A+Ox 3, RR, nroaml S1 and S2. No m/r/g, abd soft, NT, +BS warm ext.
Reccs:
1. Cont home meds and lower dose Toprol given mild bradycardiac but asymptomatic. Type 2 NSTEMI so hold off on plavix.
2. BP log at home.
3. Follow up outpt cards
Stable for DC
Total time spent: 35mins
Original Note:
Today's Communication / Plan
-
continue asa, statin, norvasc, cozaar, toprol
follow BPs at home
will arrange OP cardiac follow up
ok for DC
Impression / Plan
-
Primary Highballer: Dr. Spivey
Assessment:
Presentation with CP
Type 2 [place] felt most likely secondary to HTN
CAD status post first diagonal stent 12/2021
Hypertension
Dyslipidemia
Diabetes
Diastolic dysfunction
Former smoker
ECHO 2022: EF 60%, mild MS with peak/mean gradients 10/3 mmHg, trace MR
ECHO 07/25/25: EF 65%, thickening of anterior and posterior leaflets of mitral valve with dense MAC, mild MR, mild TR, PAP 25 mmHg, no significant changes compared to prior
Plan:
- Patient presents with episode of chest pain yesterday with exertion.peak trop 0.69
- feeling well this morning, no CP overnight
- Cath with mild to moderate CAD and patent diagonal stent, no interventions performed
- Echocardiogram with results as above, EF preserved
- Sinus rhythm/sinus bradycardic on review of telemetry
- Etiology of elevated troponin unclear, however felt most likely to be type II event secondary to hypertension. Encouraged to follow blood pressures at home, as she also reports a recent event where she stood up from bed and fell backward,
presumably felt to be due to orthostasis. Presently on regimen of Norvasc 5 mg daily, losartan 100 mg daily, Toprol 25 mg daily. She had been on a diuretic, however this was changed to Norvasc by her primary care physician due to mild LEONCIO and mild
proteinuria
- Continue aspirin, outpatient statin
- Ambulate
- Will arrange outpatient cardiac follow-up
- Okay for discharge to home today
Progress Note - Highballer
Subjective
Date of Service: July 26, 2025
no issues overnight
Objective
Labs:
07/26/25 03:08
07/26/25 03:08
Labs
Hgb 10.6 g/dL (12.0-16.0) L 07/26/25 03:08
Hct 33.5 % (37.0-47.0) L 07/26/25 03:08
Plt Count 206 10^3/uL (130-400) 07/26/25 03:08
PT 14.7 Sec (11.4-14.6) H 07/25/25 00:00
INR 1.17 07/25/25 00:00
APTT Cancelled 07/25/25 16:00
Sodium 135 mmol/L (135-145) 07/26/25 03:08
Potassium 4.3 mmol/L (3.5-5.1) 07/26/25 03:08
BUN 15 mg/dl (7-17) 07/26/25 03:08
Creatinine 0.7 mg/dL (0.6-1.0) 07/26/25 03:08
Glucose 109 mg/dl (70-99) H 07/26/25 03:08
Troponins
07/24/25 07/24/25 07/24/25
15:40 19:56 23:27
Troponin I < 0.012 0.042 H* D Cancelled
07/24/25 07/25/25 07/25/25
23:59 02:14 05:15
Troponin I 0.150 H* D 0.333 H* D 0.554 H* D
07/25/25 07/25/25
09:05 13:17
Troponin I 0.691 H* 0.650 H*
Vital Signs and I&O:
Vital Signs
Temp Pulse Resp BP Pulse Ox
98.4 F 71 16 129/48 97
07/26/25 07:37 07/26/25 05:30 07/26/25 07:37 07/26/25 03:03 07/26/25 07:37
Vital Signs
Temp Pulse Resp BP Pulse Ox
98.4 F 71 16 129/48 97
07/26/25 07:37 07/26/25 05:30 07/26/25 07:37 07/26/25 03:03 07/26/25 07:37
Intake & Output
07/23/25 07/24/25 07/25/25 07/26/25
07:59 07:59 07:59 07:59
Intake Total 45 / 45 720 / 720
Balance 45 / 45 720 / 720
Physical Exam
Physical Exam
GEN: No distress, awake, alert, oriented x3
HEENT: supple, anicteric, mmm, eomi
LUNGS: CTA B/L, no wheezes
CV: Reg, S1/S2, no murmur
ABD: soft, BS+, NT/ND
EXT: No cyanosis, clubbing, edema
NEURO: Gross non-focal
SKIN: Warm, pink, dry. No rash. R wrist site with mild soreness, c/d/i, soft.
[2025-07-26] MEDS: MAGNESIUM OXIDE 400 MG PO (08:19)
[2025-07-26] MEDS: LOW STRENGTH ASPIRIN 81 MG PO (08:19)
[2025-07-26] MEDS: TOPROL XL 25 MG PO (08:19)
[2025-07-26] MEDS: COZAAR 100 MG PO (08:20)
[2025-07-26] MEDS: NORVASC 5 MG PO (08:20)
--- NOTE | 2025-07-26 09:49 | CM ---
Reviewed chart. Met with Miss Trejo to review discharge plans. She states she is feeling well and maybe able to go home soon. Prior to admission she resides alone in a three story [facility] with five steps to enter. She has a first floor set-up. Prior
to admission she was independent with ambulation and adls. She does not have any DME in the home. She has a prescription plan and uses [facility]. The discharge plan is to return home when medically stable.
[2025-07-26 11:12] VITALS: BP 139/67
[2025-07-26 11:41] VITALS: BP 139/67
--- NOTE | 2025-07-26 14:16 | W.DCSUMMARY ---
Discharge Summary
Discharge Data
Date of Admission: 07/24/25
Date of Discharge: 07/26/25
-
Pending Results: No
Discharge Plan
-
Patient Disposition: Home (Routine Discharge)
Discharge Diagnosis/Procedures: Cardiac cath
Chest Pain possibly secondary to episode uncontrolled Hypertension
Coronary Artery Disease
Prediabetes (recent A1c 6.0)
Bradycardia
Condition: Fair
Diet: Low Cholesterol and 2 Gram Sodium
Activity: As tolerated
Driving Restrictions: As prior to admission
Bathing Restrictions: None
Activity Restrictions/Additional Instructions:
Follow up with primary care provider in 1 week of discharge and keep your appointment with Cardiology.
Metoprolol dose was reduced to half tab 12.5 mg daily due to concerns bradycardia.
Ok to resume Metformin 07/27
Please take medications as prescribed/recommended and follow up with primary care provider and/or other healthcare provider involved in your care for refills and/or further adjustment to your medication regimen as necessary.
Please keep a twice a day log of your blood pressures at home. Review log with cardiology and primary care provider in follow up for further evaluation/treatment hypertension.
Stand Alone Forms: DC Instructions- Cath/EP Lab
Referrals:
Ana Davis PA-C [Specified Professional Personl, Cardiology] - 08/20/25 10:40 am
Guanaco Espinal MD [Active, Family Practice] - in one week
Prescriptions:
Continued
aspirin 81 MG tablet,chewable
81 mg PO DAILY
rosuvastatin [Crestor] 40 MG tablet
40 mg PO QPM Qty: 90 5RF
amlodipine 5 mg Tablet
5 mg PO DAILY
ibuprofen 200 mg Tablet
400 mg PO Q6H PRN (Reason: mild pain)
magnesium oxide 400 mg magnesium Tablet
400 mg PO DAILY
losartan 100 mg Tablet
100 mg PO DAILY
Changed
metoprolol succinate 25 MG tablet extended release 24 hr
12.5 mg PO DAILY Qty: 15 0RF
Held
metformin 500 MG tablet
500 mg PO DAILY Qty: 0 0RF
Hold Instructions: Resume on 07/27/25.
metformin 1,000 MG tablet
1,000 mg PO HS Qty: 0 0RF
Hold Instructions: Resume on 07/27/25.
Discharge Orders:
Discharge Patient (As Directed); Ordered 07/26/25
Ordered By: Colin Franco
Care Plan Goals
Care Plan Goals:
Problem: Readiness for enhanced knowledge related to diagnosis and treatment plan
Goal: Understand your diagnosis and treatment plan needs, including medications if applicable.
Instructions: Know your diagnosis, underlying causes and treatment plan options, including medications if applicable. Consult with your health care team to learn about your diagnosis and treatment plan, including medications if applicable.
Discharge Date and Time
Print Language: KYRGYZ
--- NOTE | 2025-07-26 14:57 | PTCARENOTE ---
~0649-8800: Handoff report received from nightshift RN. Pt AOx4, NSR 60s-70s on tele, SBP 120s-140s, RA satting 97%. Pt denies pain at this time. R radial site soft, CDI. +2 pulses, no edema. Standby assist OOB to bathroom. All needs met at this
time, call elliott within reach.
~5254-2224: Patient bradying down to as low as 35 then will come back up to 45bpm, asymptomatic. Annetta Youssef PA-C made aware, metoprolol dosing changed to 12.5mg by cardiology.
~5670-1360: Patient resting in room. Independent to bathroom. Message sent to hospitalist to confirm possible discharge later today. All needs met at this time, call elliott within reach.
~0586-9113: DC orders in. VSS. Tele box and PIV removed from patient. DC papers reviewed with patient, all questions answered and patient verbalized understanding. Patient taken to lobby via wheelchair in stable condition with all belongings to be
picked up by nephew.
== END 2025-07-26 14:57 | disposition home or self-care (01) ==
LOC: IVU 23:06
PROVIDERS: Emergency Medicine; Internal Medicine Cardiovascular Disease; Nurse Practitioner Adult Health; ADMITTING PHYSICIAN Internal Medicine; ATTENDING PHYSICIAN Internal Medicine; EMERGENCY PHYSICIAN Student in an Organized Health Care Education/Training Program; OTHER PHYSICIAN Internal Medicine Interventional Cardiology
DX: I11.9 Hypertensive heart disease without heart failure (principal); R07.89 Other chest pain; I25.10 Atherosclerotic heart disease of native coronary artery without angina pectoris; I08.1 Rheumatic disorders of both mitral and tricuspid valves; R00.1 Bradycardia, unspecified; R73.03 Prediabetes; E78.00 Pure hypercholesterolemia, unspecified; I49.8 Other specified cardiac arrhythmias; I21.A1 Myocardial infarction type 2; Z79.82 Long term (current) use of aspirin; Z79.02 Long term (current) use of antithrombotics/antiplatelets; Z79.84 Long term (current) use of oral hypoglycemic drugs; Z88.8 Allergy status to other drugs, medicaments and biological substances; Z88.1 Allergy status to other antibiotic agents; Z88.0 Allergy status to penicillin; Z95.5 Presence of coronary angioplasty implant and graft; Z79.899 Other long term (current) drug therapy; Z87.891 Personal history of nicotine dependence; Z82.49 Family history of ischemic heart disease and other diseases of the circulatory system
CPT/HCPCS: 80048; 80053; 80061; 82962; 83036; 83735; 84100; 84484; 85025; 85027; 85610; 85730; 93005; 93306; 93458; 99152; 99153; 99285; C1769; G0378; Q9967